=== PATIENT | female | born 1950 | race Asian ===

== ENCOUNTER 2023-07-09 21:03 | Emergency (ER) | payer MEDICARE, MEDICAID ==
[~2023-07-09] VITALS: Ht 157.5 cm; Wt 47.0 kg
[2023-07-09 21:11] VITALS: BP 152/63; PULSE 93; RESP 16; TEMP 98.9
[2023-07-09] MEDS: CIPROFLOXACIN HCL 0.2%/HYDROCORT 1% 10 ML OTIC SUSPENSION AD ONE (22:15)
[2023-07-09] MEDS ORDERED: CIPOTIC AD (22:42)
== END 2023-07-09 23:02 | disposition home or self-care (01) ==
LOC: EMS 21:06
DX: H60.91 Unspecified otitis externa, right ear (principal); E78.00 Pure hypercholesterolemia, unspecified; I10 Essential (primary) hypertension; Z98.890 Other specified postprocedural states; Z88.6 Allergy status to analgesic agent
CPT/HCPCS: 99283